=== PATIENT | male | born 1990 | race Hispanic/Latino ===

== ENCOUNTER 2017-04-23 16:14 | Emergency (ER) | payer BC ==
[2017-04-23 16:39] VITALS: TEMP 98.2
--- NOTE | 2017-04-23 17:12 | ED PDOC ---
Arrival/HPI - General Chief Complaint: Palpitations Time Seen by Provider: 04/23/17 16:20 Historian: Patient - History of Present Illness Narrative History of Present Illness (Text): 26 year old patient with no significant Past medical history presents complaining of palpitations and lightheadedness. Patient states [place] was [place] [employer] and while he was sitting down he began to have palpitations, lightheadedness, and generalized lower ext. weakness. He stated that "I felt like my legs weren't beneath me". His palpitations and lightheadedness resolved but he still feels like his legs are weak. The episode lasted for about 2 minutes. Symptoms associated with his episode include blurry vision, and lower ext. tingling. He denies any headache, dizziness, chest pain, shortness of breath, abdominal pain, nausea, vomiting, diarrhea, constipation, urinary symptoms, focal muscle weakness, or sensory loss. Of note, patient took one scoop of Nitroflex preworkout 2 hours before episode and went to the gym with no issues. PMD: Dr. Hurtado in [place]. Time/Duration: 1-3 hours Symptom Onset: Sudden Symptom Course: Other (Resolving ) Activities at Onset: Rest Past Medical History - Provider Review Nursing Documentation Reviewed: Yes - Infectious Disease Hx of Infectious Diseases: None - Past Medical History Past Medical History: No Previous - Psychiatric Hx Substance Use: No - Anesthesia Hx Anesthesia: No Hx Anesthesia Reactions: No Hx Malignant Hyperthermia: No Family/Social History - Physician Review Nursing Documentation Reviewed: Yes Family/Social History: Other (Cardiomyopathy - Uncle) Smoking Status: Chewing tobacco for 6-7 years; Quit 1 year ago. Hx Alcohol Use: Yes Frequency of alcohol use: Socially Hx Substance Use: No Allergies/Home Meds Allergies/Adverse Reactions: Allergies Penicillins Allergy (Verified 04/23/17 17:14) RASH Home Medications: Home Meds Medication Instructions Recorded Confirmed No Known Home Med 04/23/17 04/23/17 Review of Systems - Physician Review All systems were reviewed & negative as marked: Yes (As per HPI) - Review of Systems Respiratory: Normal. absent: SOB Cardiovascular: Palpitations. absent: Chest Pain Gastrointestinal: Normal. absent: Abdominal Pain Physical Exam Vital Signs Reviewed: Yes Vital Signs Temp Pulse Resp BP Pulse Ox 04/23/17 16:33 98.2 F 88 20 150/81 98 Temperature: Afebrile Blood Pressure: Hypertensive Pulse: Regular Respiratory Rate: Normal Appearance: Positive for: Well-Appearing, Non-Toxic, Comfortable Pain Distress: None Mental Status: Positive for: Alert and Oriented X 3 - Systems Exam Head: Present: Atraumatic, Normocephalic Pupils: Present: PERRL Extroacular Muscles: Present: EOMI Conjunctiva: Present: Normal Ears: Present: Normal Mouth: Present: Moist Mucous Membranes Pharnyx: Present: Normal Nose (External): Present: Atraumatic Neck: Present: Normal Range of Motion Respiratory/Chest: Present: Clear to Auscultation. No: Wheezes, Rales, Rhonchi , Tender to Palpation Cardiovascular: Present: Regular Rate and Rhythm, Normal S1, S2, Peripheal Pulses Present. No: Murmurs, Tachycardic, Bradycardic, Rub, Gallop, Muffled Abdomen: Present: Normal Bowel Sounds. No: Tenderness Upper Extremity: Present: Normal Inspection, Normal ROM, NORMAL PULSES, Capillary Refill < 2s. No: Cyanosis, Edema Lower Extremity: Present: Normal Inspection, NORMAL PULSES, Normal ROM, Capillary Refill < 2 s. No: Edema, Cyanosis Neurological: Present: GCS=15, CN II-XII Intact, Speech Normal, Motor Func Grossly Intact, Normal Sensory Function, Gait Normal Skin: Present: Warm, Dry, Normal Color Psychiatric: Present: Alert, Oriented x 3, Normal Mood, Anxious Medical Decision Making ED Course and Treatment: Patient is 26 year old male with no significant Past medical history who presents complaining of palpitations, lightheadness, and leg weakness --Likely 2/2 to preworkout --EKG: NSR with no ST/T wave changes --CMP/CBC --Reassess and Disposition Reassessment CBC - Unremarkable CMP - Elevated ALT @ 73 otherwise unremarkable. Disposition: Patient is stable for discharge. Lab work was unremarkable. Advised patient to follow up with primary medical physician. - Lab Interpretations Lab Results: 04/23/17 17:19 04/23/17 17:19 Lab Results 04/23/17 17:19: Sodium 139, Potassium 3.9, Chloride 101, Carbon Dioxide 27, Anion Gap 15, BUN 20, Creatinine 1.2, Est GFR ( Amer) > 60, Est GFR (Non- Af Amer) > 60, Random Glucose 104, Calcium 9.8, Total Bilirubin 0.5, AST 43, ALT 73 H, Alkaline Phosphatase 86, Total Protein 8.4 H, Albumin 4.9 H, Globulin 3.5, Albumin/Globulin Ratio 1.4 04/23/17 17:19: WBC 8.8, RBC 5.08, Hgb 15.1, Hct 42.7, MCV 84.1, MCH 29.7, MCHC 35.4, RDW 12.2, Plt Count 270, MPV 9.4, Gran % 67.6, Lymph % (Auto) 21.5 L, [place] % (Auto) 9.1 H, Eos % (Auto) 1.7, Baso % (Auto) 0.1, Gran # 5.94, Lymph # 1.9, [place] # 0.8 H, Eos # 0.2, Baso # 0.01 I have reviewed the lab results: Yes - EKG Interpretation Interpreted by ED Physician: Yes Type: 12 lead EKG Disposition/Present on Arrival - Present on Arrival Any Indicators Present on Arrival: No History of DVT/PE: No History of Uncontrolled Diabetes: No Urinary Catheter: No History of Decub. Ulcer: No History Surgical Site Infection Following: None - Disposition Have Diagnosis and Disposition been Completed?: Yes Diagnosis: Palpitations Disposition: HOME/ ROUTINE Disposition Time: 18:12 Patient Plan: Discharge Condition: GOOD Discharge Instructions (ExitCare): Palpitations (ED), Lightheadedness (ED) Additional Instructions: Please follow up with your primary physician. Forms: [employer] (Danish)
[2017-04-23 17:38] LABS: ALB/GLOB RATIO 1.4 (1.1-1.8); ALKALINE PHOSPHATASE 86 U/L (38-126); ALT/SGPT 73 U/L (7-56); AST/SGOT 43 U/L (17-59); BILIRUBIN,TOTAL 0.5 mg/dL (0.2-1.3); BLOOD UREA NITROGEN 20 mg/dL (7-21); CALCIUM 9.8 mg/dL (8.4-10.5); CARBON DIOXIDE 27 mmol/L (21-33); CHLORIDE 101 mmol/L (98-107); GFR AFRICAN-AMERICAN > 60; GLUCOSE,RANDOM 104 mg/dL (70-110); POTASSIUM 3.9 mmol/L (3.6-5.0); SODIUM 139 mmol/L (132-148); TOTAL PROTEIN 8.4 g/dL (5.8-8.3)
[2017-04-23 17:45] LABS: BASO # 0.01 K/mm3 (0.0-2.0); BASO % 0.1 % (0.0-3.0); EOS # 0.2 (0.0-0.7); EOS % 1.7 % (1.5-5.0); GRAN # 5.94 (1.4-6.5); GRAN % 67.6 % (50.0-68.0); HEMATOCRIT 42.7 % (42.0-52.0); LYMPH # 1.9 (1.2-3.4); LYMPH % 21.5 % (22.0-35.0); MEAN CELL VOLUME 84.1 fl (80.0-105.0); MEAN CORPUSCULAR HEMOGLOBIN 29.7 pg (25.0-35.0); MEAN CORPUSCULAR HGB CONC 35.4 g/dl (31.0-37.0); MEAN PLATELET VOLUME 9.4 fl (7.0-11.0); MONO # 0.8 (0.1-0.6); MONO % 9.1 % (1.0-6.0); RED CELL DISTRIBUTION WIDTH 12.2 % (11.5-14.5); WHITE BLOOD COUNT 8.8 10^3/ul (4.5-11.0)
[2017-04-23 18:38] VITALS: BP 139/79; PULSE 84; RESP 18; O2SAT 99
--- NOTE | 2017-04-24 16:21 | CARD ---
APPROVED REPORT EKG Measurement Heart [id number] <Conclusion> Normal sinus rhythm Nonspecific T wave abnormality Abnormal ECG
== END 2017-04-23 18:39 | disposition home or self-care (01) ==
LOC: ED 16:14
DX: R00.2 Palpitations (principal); Z88.0 Allergy status to penicillin